=== PATIENT | female | born 1940 | race Caucasian/White ===

== ENCOUNTER 2016-11-18 18:53 | Emergency (ER) | payer MEDICARE ==
[2016-11-18] MEDS ORDERED: NORMAL SALINE 1,000 ML IV ONE (19:32)
--- NOTE | 2016-11-18 19:43 | ERNOTE ---
<Jack Salazar - Last Filed: 11/18/16 20:48> Medical Problem HPI - Narrative Date of Service: 11/18/16 - General Chief Complaint: General Assessment Time Seen by Provider: 11/18/16 19:18 Source: patient Exam Limitations: clinical condition - PT SEEMS DEMENTED DISORIENTED TO DAY AND PERSON BUT KNOWS SHE IS AT [facility]. SHE CAN NOT CONSISTENTLY GIVE HER AGE , PRESIDENT, MONTH OR YEAR. I DO NOT BELIEVE HER HISTORY IS RELIABLE. - Immun/Allergies/Home Medications Immunizations: IMMUNIZATION HX Immunizations Up to Date Yes History of Influenza Vaccine Yes Hx Pneumococcal Vaccination Yes Allergies/Adverse Reactions: Allergies codeine [Codeine] Allergy (Intermediate, Verified 07/15/16 18:42) latex Allergy (Intermediate, Verified 07/15/16 18:42) rash Penicillins Allergy (Intermediate, Verified 07/15/16 18:42) Nausea ezetimibe [From Vytorin 10-10] Allergy (Unknown, Verified 07/15/16 18:42) simvastatin [From Vytorin 10-10] Allergy (Unknown, Verified 07/15/16 18:42) Latex, Natural Rubber Allergy (Verified 07/15/16 18:42) Hives fentanyl Adverse Reaction (Severe, Verified 07/15/16 18:42) Vomiting oxycodone HCl [From OxyContin] Adverse Reaction (Intermediate, Verified 18:42) Vomiting hydrocodone [Hydrocodone] Adverse Reaction (Verified 07/15/16 18:42) unknown methadone [Methadone] Adverse Reaction (Verified 07/15/16 18:42) Other Milk Containing Products Adverse Reaction (Verified 07/15/16 18:42) Other morphine Adverse Reaction (Verified 07/15/16 18:42) Other oxycodone [Oxycodone] Adverse Reaction (Verified 07/15/16 18:42) unknown Home Medications: HOME MEDICATIONS Nitroglycerin [Nitrostat] 0.4 mg SL Q5MIN PRN #30 btl 08/20/15 [Last Taken 07/15 17:42 2 doses] Albuterol Sulfate [Albuterol Sulfate 2.5 MG/0.5ML] 1 vial IH QID 11/18/16 [Last Taken Unknown] Aspirin [Aspirin EC] 81 mg PO DAILY 11/18/16 [Last Taken Unknown] Carvedilol [Coreg] 12.5 mg PO BID 11/18/16 [Last Taken Unknown] Cholecalciferol (Vitamin D3) [Vitamin D] 2,000 unit PO DAILY 11/18/16 [Last Taken Unknown] Colchicine 0.6 mg PO DAILY 11/18/16 [Last Taken Unknown] Gabapentin [Neurontin] 600 mg PO HS 11/18/16 [Last Taken Unknown] Insulin NPH Hum/Reg Insulin Hm [Humulin 70-30] 15 unit SC BIDAC 11/18/16 [Last Taken Unknown] Melatonin 5 mg PO HS 11/18/16 [Last Taken Unknown] Multivit with Calcium,Iron,Min [Women's Daily Formula] 1 each PO DAILY 11/18/16 [Last Taken Unknown] buPROPion HCL [Wellbutrin XL] 150 mg PO DAILY 11/18/16 [Last Taken Unknown] - History of Present History Narrative: PT CLAIMS SHE IS HERE BECAUSE SHE HAS HAD BOWEL TROUBLE FOR A YEAR. SHE CLAIMS SHE HAS HAD BLOODY DIARRHEA EVERY 15 MINS FOR THE PAST YEAR BUT STATES SHE HAS NOT BEEN SEEN BY A DOCTOR BECAUSE, SHE "DOES NOT HAVE ONE" , YET SHE SAYS SHE HAS BEEN HERE TO THE ER A FEW WEEKS AGO FOR A SORE FOOT. Review of Systems - Review of Systems Constitutional: Present: See HPI, weakness Gastrointestinal/Abdominal: Present: diarrhea All Other Systems: All systems neg except as marked - THOUGH I DO NOT THINKD SHE IS A RELIABLE HISTORIAN AND HER DAUGHTER , JAZMYN WHOM SHE LIVES , IS NOT HERE WITH HER. - Patient's Past Medical History Patient History - Medical: Anemia, Anxiety, Arthritis, Diabetes Type 2 Insulin Dependent, Depression, GERD, Osteoarthritis, Osteoporosis Patient History - Cardiac/Respiratory: Coronary Heart Disease, Hypertension, Hyperlipidemia Patient History - Cancer: Other Patient History - Surgical Procedures: Back Surgery, Cataracts, Cholecystectomy , Cardiac stent, Hysterectomy, Other Patient History - Other: None - Family History Mother Family History - Medical: , Diabetes Type 1 Family History - Cardiac/Respiratory: Hypertension Father Family History - Medical: , Diabetes Type 2 Family History - Cardiac/Respiratory: Coronary Heart Disease Sister Family History - Medical: , Diabetes Type 2 Family History - Cardiac/Respiratory: Hypertension - Social History Living Situations: home Abuse History: No History of abuse Psych History: Hx of Anxiety, Hx of Depression Smoking Status: Current every day smoker Patient requests Smoking Cessation Consult: No Initiate information on Smoking Cessation: No Alcohol Use: none Drug Use: none - Immunizations Immunizations Up to Date: Yes Hx Pneumococcal Vaccination: Yes History of Influenza Vaccine: Yes Physical Exam - Physical Exam General Appearance: Present: alert, no apparent distress, other - PT IS DISORIENTED BUT ALERT AND COOP ELDERLY LADY WHO DOES APPEAR DRY. Eye Exam: Normal inspection: bilateral Ears, Nose, Throat: Present: normal except -, dry mucous membranes Neck: Present: normal inspection, nontender. Absent: carotid bruit Respiratory: Present: no respiratory distress, normal breath sounds, no accessory muscle use, chest nontender, lungs clear Cardiovascular/Chest: Present: regular rate, rhythm, no murmur, normal peripheral pulses Gastrointestinal/Abdominal: Present: normal bowel sounds, nontender, nondistended, soft, no organomegaly, other - SHE HAS A SOFT NON TENDER ABDOMEN THAT HAS MULTIPLE OLD SURGICAL SCARS ON HER ABD. Back Exam: Present: normal inspection, normal range of motion, no CVA tenderness , no vertebral tenderness Extremity Exam: Present: normal except - - SHE HAS PURPLISH BRUISING TO THE DISTAL TOES OF HER RIGHT FOOT WITH NO SWELLING OR GROSS DEFORMITY , normal range of motion, no edema Neurological Exam: Present: alert, no motor/sensory deficits, disoriented to person, disoriented to time Skin Exam: Present: normal color, warm/dry ED Progress - Vital Signs Vital Signs: Vital Signs 11/18/16 11/18/16 18:56 19:16 Temperature 37.5 C Pulse Rate 89 80 Respiratory 18 18 Rate Blood Pressure 146/59 146/59 O2 Sat by Pulse 96 97 Oximetry - Progress/Reassessment Chief Complaint: General Assessment - Transfer of Care Physician Sign Out: Jack Salazar Brief History: DEMENTED ACTING LADY CLAIMING CHRONIC DIARRHEA X 1 YEAR , EVERY 15 MINS OF EVERY DAY. Receiving Physician: Ruslan Duffy Pending Results: Labs Expected Disposition: Discharge Departure - Departure Clinical Impression: Hematochezia, Chronic diarrhea Disposition: Home self-care Condition: Fair Instructions: Gastrointestinal Bleeding, [id number], Diarrhea, Adult, Easy-to -Read Print Language: Haitian Additional Instructions: If the blood in the stool increases return to the ED. You will need to have an lower endoscopy done to have an idea of the where the blood is coming from. Referrals: Conrado Mcgill MD [Staff Physician] - <Ruslan Duffy - Last Filed: 11/19/16 05:48> Medical Problem HPI - Immun/Allergies/Home Medications Immunizations: IMMUNIZATION HX Immunizations Up to Date Yes History of Influenza Vaccine Yes Hx Pneumococcal Vaccination Yes ED Progress - Results and Orders Patient's Lab Results:: I have reviewed the patient's lab results. - Vital Signs Patient's Vital Signs:: I have reviewed the patient's vital signs. Vital Signs: Vital Signs 11/18/16 11/18/16 11/18/16 21:45 22:45 23:45 Temperature Pulse Rate 80 86 84 Respiratory 18 12 18 Rate Blood Pressure 146/55 154/65 218/83 O2 Sat by Pulse 97 97 100 Oximetry 11/19/16 11/19/16 11/19/16 00:05 00:40 00:52 Temperature Pulse Rate 86 96 95 Respiratory 18 18 Rate Blood Pressure 154/70 134/71 O2 Sat by Pulse 100 99 Oximetry 11/19/16 00:57 Temperature 37.5 C Pulse Rate 95 Respiratory 18 Rate Blood Pressure 134/71 O2 Sat by Pulse 99 Oximetry - Progress/Reassessment Progress:: Unchanged Progress Note-Subjective: 11/19/16 05:33 The rectal exam demonstrated heme positive no masses. 11/19/16 05:35 The care of the patient had been assumed from Dr. Davis. The patient has been having chronic diarrhea, with the new onset of hematochezia today. Denies any pain, new fatigue, or fevers. She has had more than a 70 pound weight loss over the last year. A CT scan of the abdomen/ pelvis did not show any acute pathology. The patient was instructed to contact Dr. Mcgill for follow up care since she will need to have a lower endoscopy done. It was advised that she call the office this morning. During he ED stay Silvia remained hemodynamically stable and could be managed as an out patient. There was no change in her ability to ambulate and was able to go to the bathroom with minimal assistance.
[2016-11-18 19:46] LABS: Hematocrit 30.4 % (37.0-47.0); Hemoglobin 10.6 gm/dL (12.5-16.0); Mean Corpuscular Hemoglobin 31.7 pg (27-31); Mean Corpuscular Hgb Conc 34.9 g/dl (32-36); Mean Platelet Volume 10.2 fl (6.0-9.5); Neutrophil # 6.6 K/mm3 (1.3-6.0); Neutrophil % 78.7 % (42-75.0); Platelet Count 112 K/mm3 (150-450); Red Blood Count 3.34 M/mm3 (4.2-5.4); Red Cell Distribution Width 13.4 % (11.5-14.0); White Blood Count 8.3 K/mm3 (4.0-10.5)
--- OUTSIDE RECORDS SUMMARY | 2016-11-18 19:49 | XMS REPORT | Continuity of Care Document ---
:1940 Author Organization [facility] ([facility]) Address [address] [place] [address] Phone [phone] Care Team Providers Name Role Phone Azul Cortez Primary Care Provider [phone] Source Comments This disclosure is being made pursuant to the Care Everywhere program, applicable federal and state laws, and may not contain all informaitonavailable regarding this patient.[facility] ([facility]) Active Allergies and Adverse Reactions Allergen Noted Date Severity Reactions Comments Codeine 04/01/2014 Nausea & Vomiting Ezetimibe-Simvastatin 04/01/2014 Nausea & Vomiting,Rash Latex 04/01/2014 Rash Methadone 05/13/2009 OTHER Out of head Morphine 05/13/2009 Nausea & Vomiting,Hallucinations Penicillins 05/13/2009 Nausea & Vomiting,Diarrhea Current Medications Prescription Sig. Disp. Refills Start Date End Date Status MULTIVITAMINS Take 1 Tab by mouth Active W-MINERALS/LUT daily. (CENTRUM SILVER PO) buPROPion Take 150 mg by mouth 03/05/2014 Active (WELLBUTRIN XL) 150 daily. mg extended release tablet 24 hour omega-3 fatty Take 1,000 mg by Active acids-vitamin E mouth daily. (FISH OIL) 1,000 mg capsule albuterol 90 Use 2 Puffs by Active mcg/Actuation inhalation every 6 inhaler hours as needed. nitroglycerin 0.[address] 0.4 mg under Active SL tablet the tongue every 5 minutes as needed. aspirin 81 mg Take 81 mg by mouth Active chewable tablet daily. omeprazole 20 mg Take 20 mg by mouth Active extended release daily. capsule SERTraline 50 mg Take 50 mg by mouth Active tablet daily. gabapentin 300 mg Take 300 mg by mouth Active capsule at bedtime. insulin nph-regular Inject 15 Units Active (HumuLIN 70/30) 100 subcutaneously 2 unit/mL injection times daily before vial meals. acetaminophen 500 mg Take 1,000 mg by Active tablet mouth every 6 hours as needed for Pain. carvedilol 12.5 mg Take 1 tablet (12.5 60 tablet 0 02/16/2016 Active tablet mg total) by mouth 2 times daily. colchicine 0.6 mg Take 1 tablet (0.6 60 tablet 0 02/16/2016 Active tablet mg total) by mouth daily. 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 Type 2 diabetes mellitus without complication 06/15/2007 Cirrhosis of liver without mention of alcohol 06/15/2007 Unspecified disorder of liver 06/15/2007 Social History Tobacco Use Types Packs/Day Years Used Date Heavy Tobacco Smoker Cigarettes Smokeless Tobacco: Never Used Alcohol Use Drinks/Week oz/Week Comments No Last Filed Vital Signs Vital Sign Reading Time Taken Blood Pressure 136/52 02/16/2016 8:05 AM CDT Pulse 78 02/16/2016 3:00 AM CDT Temperature 36.8 C (98.2 F) 02/16/2016 8:05 AM CDT Respiratory Rate 20 02/16/2016 8:05 AM CDT Height 1.549 m (5' 1") 02/12/2016 10:50 AM CDT Weight 64.5 kg (142 lb 3.2 oz) 02/16/2016 5:00 AM CDT Body Mass Index 26.88 02/16/2016 5:00 AM CDT Oxygen Saturation 96% 02/16/2016 8:05 AM CDT Plan of Care Health Maintenance Due Date Last Done Comments Hepatitis B Vaccine (1 of 3 - Primary Series) 1940 Tdap Vaccine 12/11/1950 Diabetic: Ldl 12/11/1957 DIABETIC: Microalbumin 12/11/1957 Td Vaccine 12/11/1957 Mammogram 1979 Colonoscopy 12/11/1989 Zoster Vaccine 1999 Osteoporosis Screening (DXA Bone Density) 12/11/2004 Pneumococcal Vaccine (1 of 2 - PCV13) 12/11/2004 DIABETIC: Foot Exam 01/19/2011 DIABETIC: Retinal Eye Exam 01/19/2011 Influenza Vaccine: Seasonal (#1) 03/08/2016 DIABETIC: Hemoglobin A1C 08/15/2016 02/13/2016 DIABETIC: Cholesterol 02/12/2017 02/13/2016 Diabetic: Hdl 02/12/2017 02/13/2016 DIABETIC: Triglycerides 02/12/2017 02/13/2016 Results from Last 3 Months Not on file
--- OUTSIDE RECORDS SUMMARY | 2016-11-18 19:49 | XMS REPORT | Continuity of Care Document ---
:1940 Author Organization [facility] [place] [address] Care Team Providers Name Role Phone Unavailable Primary Care Provider Unavailable Source Comments This disclosure is being made pursuant to the [email or web address] program and maynot contain all information available regarding this patient.[facility] Active Allergies and Adverse Reactions Not on File Current Medications Be aware that medications may not be up to date as of this document. Alwaysverify current medications with the patient. Not on file Active Problems Not on file Immunizations Name Dates Previously Given Next Due Influenza Split 08/08/2009 Pneumococcal Polysaccharide-23 08/08/2008 Social History Tobacco Use Types Packs/Day Years Used Date Current Every Day Smoker Plan of Care Health Maintenance Due Date Last Done Comments Tetanus/Pertussis (1 - Tdap) 12/11/1958 Well Adult Visit 12/11/1989 Zoster Vaccine 60+ 1999 Bone Density 12/11/2004 Pneumococcal Low/Medium Risk 65+ (2 of 2 - PCV13) 08/08/2009 08/08/2008 Influenza Immunization (#1) 2016 08/08/2009 Results from Last 3 Months Not on file
[2016-11-18 20:07] LABS: Albumin * 2.5 gm/dl (3.4-5.0); Anion Gap 12.5 mmol/L (6.8-13.8); BUN/Creatinine Ratio 20.2 (9.0-21.6); Bilirubin, Total 0.6 mg/dL (0.0-1.1); Ca. Corrected For Albumin 9.2 mg/dL (8.4-10.2); Calcium * 8.3 mg/dL (7.9-10.9); Carbon Dioxide 23.9 mmol/L (24-32.6); Potassium 3.4 mmol/L (3.4-4.6); TSH * 0.658 uIU/mL (0.358-3.74); Total Protein 5.6 gm/dL (6.2-8.2)
[2016-11-18 20:09] LABS: Prothrombin Time (Patient) 12.5 Seconds (9.4-11.4)
[2016-11-18 20:10] LABS: INR 1.2 INR (0.90-1.10)
[2016-11-18 20:56] LABS: Urine Bilirubin Negative (NEGATIVE); Urine Blood 25 /ul (NEGATIVE); Urine Ketone 5 mg/dL (NEGATIVE); Urine Nitrite Negative (NEGATIVE); Urine Protein >=300 mg/dL (NEGATIVE); Urine Specific Gravity 1.015 SP.GR. (1.005-1.010); Urine Urobilinogen Normal (NORMAL)
[2016-11-18 21:11] LABS: Urine Amorphous Sediment Moderate - 2+ (NONE-FEW); Urine Appearance Clear; Urine Bacteria 2+; Urine Color Yellow; Urine Hyaline Cast 0-5 /LPF; Urine RBC 0-5 /hpf (0-5); Urine WBC 0-5 /hpf (0-5)
[2016-11-19 02:16] VITALS: BP 134/71
== END 2016-11-19 00:57 | disposition home or self-care (01) ==
LOC: ER 18:53
DX: K92.1 Melena (principal); K52.9 Noninfective gastroenteritis and colitis, unspecified; F17.200 Nicotine dependence, unspecified, uncomplicated

== ENCOUNTER 2017-02-13 20:01 | Emergency (ER) | payer MEDICARE ==
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
[2017-02-13] MEDS ORDERED: KETOROLAC TROMETHAMINE 30 MG/ML VIAL IV ONE (20:46)
[2017-02-13] MEDS ORDERED: KETOROLAC TROMETHAMINE 30 MG/ML VIAL ONE (20:53)
[2017-02-13 21:35] VITALS: BP 149/64
== END 2017-02-13 21:40 | disposition short-term general hospital (02) ==
LOC: ER 20:01
DX: R07.89 Other chest pain (principal); M54.5 Low back pain; W19.XXXA Unspecified fall, initial encounter

== ENCOUNTER 2018-06-19 09:13 | Observation (INO) ==
--- NOTE | 2018-06-19 09:35 | ERNOTE ---
Medical Problem HPI - General Chief Complaint: Diabetes Related Problem Time Seen by Provider: 06/19/18 09:19 [facility] Exam Limitations: clinical condition, dementia - Immun/Allergies/Home Medications Immunizations: IMMUNIZATION HX Immunizations Up to Date Yes History of Influenza Vaccine Yes Hx Pneumococcal Vaccination No Allergies/Adverse Reactions: Allergies codeine [Codeine] Allergy (Intermediate, Verified 06/19/18 09:24) latex Allergy (Intermediate, Verified 06/19/18 09:24) rash Penicillins Allergy (Intermediate, Verified 06/19/18 09:24) Nausea ezetimibe [From Vytorin 10-10] Allergy (Unknown, Verified 06/19/18 09:24) simvastatin [From Vytorin 10-10] Allergy (Unknown, Verified 06/19/18 09:24) fentanyl Adverse Reaction (Severe, Verified 06/19/18 09:24) Vomiting milk Adverse Reaction (Unknown, Verified 06/19/18 09:24) hydrocodone [Hydrocodone] Adverse Reaction (Verified 06/19/18 09:24) unknown methadone [Methadone] Adverse Reaction (Verified 06/19/18 09:24) Other morphine Adverse Reaction (Verified 06/19/18 09:24) Other oxycodone [Oxycodone] Adverse Reaction (Verified 06/19/18 09:24) unknown Home Medications: HOME MEDICATIONS Citalopram Hydrobromide [Citalopram HBr] 5 mg PO QAM 01/09/18 [Last Taken 01/09/18 07:00] Gabapentin 100 mg PO TID 01/09/18 [Last Taken 01/09/18 12:00] Lisinopril 5 mg PO HS 01/09/18 [Last Taken 01/09/18 19:00] Atorvastatin Calcium [Lipitor] 20 mg PO DAILY 01/17/18 [Last Taken Unknown] Carbamide Peroxide [Debrox] 1 drop EACH EAR .Q7DAYS 01/17/18 [Last Taken 01/10/18 07:00] metFORMIN HCL [Metformin HCl ER] 1,000 mg PO BIDWM 01/17/18 [Last Taken Unknown] Furosemide 60 mg PO DAILY #30 tab 01/18/18 [Last Taken Unknown] Pantoprazole Sodium [Protonix] 40 mg PO 0700 #30 tablet. 01/18/18 [Last Taken Unknown] acetaminophen 325 mg tablet 650 mg PO Q6H tab 04/06/18 [Last Taken Unknown] Cholecalciferol (Vitamin D3) [Vitamin D3] 2,000 unit PO DAILY 06/19/18 [Last Taken Unknown] - History of Present History Narrative: PAtient is from the dementia unit at the [facility]. Today her glucose was elevated and she has been more confused and less active than usual. No further history is available. Review of Systems - Narrative Narrative: unable to obtain Medical History (Last Reviewed 06/19/18 @ 12:02 by Anne-Marie Haddad MD) Anemia of chronic disease (Chronic) Essential hypertension (Chronic) Onset Date: Unknown Osteoporosis (Chronic) Anxiety and depression (Chronic) CHF (congestive heart failure) (Chronic) Uncontrolled type 2 diabetes mellitus with hyperglycemia, with long-term current use of insulin (Chronic) Type II diabetes mellitus with renal manifestations, uncontrolled (Chronic) Hypertension (Chronic) Confusion (Chronic) GERD with esophagitis (Chronic) CKD (chronic kidney disease) stage 3, GFR 30-59 ml/min (Chronic) Dementia (Chronic) Depression (Chronic) Anxiety and depression Onset Date: ~1969 COPD (chronic obstructive pulmonary disease) Onset Date: ~2008 Dementia Onset Date: Unknown Diabetes mellitus Onset Date: Unknown with proteinuria, neuropathy Gastritis Onset Date: Unknown Hx of echocardiogram Onset Date: 03/03/15 moderate concentric left ventricular hypertrophy, EF-52%,, pulmonary hypertension, small pericardial effusion, right ventricular systolic pressure elevated at 45mmHG Hyperlipidemia Onset Date: 1979 Osteoarthritis Onset Date: 2006 chronic, laminectomy, disc protrusion[2009] Osteoporosis Onset Date: Unknown Tobacco abuse Onset Date: Unknown 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 ' Tinguely- tubular adenoma x2, hyperplastic x1. History of appendectomy Onset Date: 1961 History of esophagogastroduodenoscopy (EGD) Onset Date: ~2017 '07 '09 Peasley-mild esophagitis, inflamed glandular tissue w/changes suspicious for specialized columnar epithelium. 'Tinguely-mod chemical irritation. 01/17/1867-[id number] History of lumbar spinal fusion Onset Date: 12/11/08 Dr. Snell History of salpingo-oophorectomy Onset Date: 1971 after tubal Hx of cardiac catheterization Onset Date: 06/26/13 Dr Solomon - left heart cath with coronary angiography - severe one-vessel coronary artery disease/RCA Hx of cholecystectomy Onset Date: ~1961 Dr Cruz- open Hx of eye surgery Onset Date: ~200506/21/06-left 05/02/06-right Hx of laminectomy Onset Date: Unknown L4-5, L5-S1 Hx of vascular surgery Onset Date: 06/14/11 [facility] [employer] of right SFA S/P pericardiocentesis Onset Date: 02/13/16 [facility] S/P total abdominal hysterectomy Onset Date: 1972 with partial oophorectomy S/p bilateral carpal tunnel release Onset Date: 201112/14/07 Dr Aguirre-left. 05/1912 Mely-right s/p left hip cemented hemiarthroplasty Onset Date: 01/11/18 Dr. Boone Family History: Family History (Last Reviewed 06/19/18 @ 09:20 by iNck Duffy RN) Father Diabetes Heart disease Gangrene of foot Mother Diabetes Heart disease Hypertension Osteoporosis Sister Diabetes Hypertension Brother Diabetes Hypertension Social History: Preferred Language Uzbek Smoking Status Former smoker Abuse History No History of abuse Psych History Hx of Anxiety,Hx of Depression Alcohol Use none Drug Use none (Last Updated 06/06/18 @ 12:45 by Shanna Ahn DO) No Social History Section defined Physical Exam - Physical Exam General Appearance: Present: wd/wn, no apparent distress, obese, other - confused Eye Exam: Normal inspection: bilateral Respiratory: Present: no respiratory distress, normal breath sounds, lungs clear Cardiovascular/Chest: Present: no murmur, tachycardia Gastrointestinal/Abdominal: Present: normal bowel sounds, nontender, nondistended, soft Extremity Exam: Present: no edema Neurological Exam: Present: alert, disoriented to person, disoriented to time, disoriented to place, disoriented to situation, other - follows some commands, moved all extremities Skin Exam: Present: normal color, warm/dry, intertrigo - right groin, other - no skin breakdown ED Progress - Results and Orders Patient's Lab Results:: I have reviewed the patient's lab results. - Vital Signs Patient's Vital Signs:: I have reviewed the patient's vital signs. Vital Signs: Vital Signs 06/19/18 09:13 Temperature 37.5 C Pulse Rate 108 H Respiratory Rate 16 Blood Pressure 160/80 H O2 Sat by Pulse Oximetry 90 L - X-Ray X-Ray #1 X-Ray: chest - 1. Mildly increased vascular markings of the lungs. Interpretation: Reviewed by me X-Ray #2 X-Ray: abdomen - . Stool retention at the rectosigmoid region, suggestive of constipation/fecal impaction. No definite signs of bowel obstruction Interpretation: Reviewed by me - Progress/Reassessment Chief Complaint: Diabetes Related Problem Progress Note-Subjective: 06/19/18 11:02 patient restless and confused, possible in pain? possible infection is a concern as patient has slightly elevated WBC and no other obvious reason for elevated glucose no source of infection found at this point 06/19/18 11:56 discussed with kelsy Henriquez to admit for observation for hyperglycemia and possible infection she will decide on antibiotic use after seeing patient Departure Clinical Impression: Hyperglycemia - Departure Disposition: Still a patient Condition: Stable
[2018-06-19 09:57] LABS: Hematocrit 30.7 % (37.0-47.0); Hemoglobin 10.8 gm/dL (12.5-16.0); Mean Cell Volume 92.7 fl (78-100); Mean Corpuscular Hemoglobin 32.6 pg (27-31); Mean Corpuscular Hgb Conc 35.2 g/dl (32-36); Mean Platelet Volume 11.1 fl (8-12.5); Neutrophil # 9.8 K/mm3 (1.3-6.0); Neutrophil % 83.8 % (42-75.0); Platelet Count 143 K/mm3 (150-450); Red Blood Count 3.31 M/mm3 (4.2-5.4); Red Cell Distribution Width 11.7 % (11.5-14.0); White Blood Count 11.6 K/mm3 (4.0-10.5)
[2018-06-19 10:19] LABS: ALT 18 U/L (19-67); AST 14 U/L (0-48); Albumin * 3.6 gm/dl (3.4-5.0); Alkaline Phosphatase * 189 U/L (50-170); Anion Gap 17.8 mmol/L (6.8-13.8); Bilirubin, Total 0.9 mg/dL (0.0-1.1); Blood Urea Nitrogen 43 mg/dL (3-23); CRP 1.8 mg/dL (0.0-0.9); Ca. Corrected For Albumin 9.5 mg/dL (8.4-10.2); Calcium * 9.5 mg/dL (7.9-10.9); Carbon Dioxide 25.7 mmol/L (24-32.6); Chloride 96 mmol/L (97-106); Potassium 4.5 mmol/L (3.4-4.6); Sodium 135 mmol/L (132-142); Total Protein 7.6 gm/dL (6.2-8.2)
[2018-06-19 10:22] LABS: Glucose * 704 mg/dL (70-110)
[2018-06-19 10:26] LABS: Urine Bilirubin Negative (NEGATIVE); Urine Blood 25 /ul (NEGATIVE); Urine Ketone 5 mg/dL (NEGATIVE); Urine Nitrite Negative (NEGATIVE); Urine Protein 100 mg/dL (NEGATIVE); Urine Specific Gravity 1.015 SP.GR. (1.005-1.010); Urine Urobilinogen Normal (NORMAL)
[2018-06-19] MEDS ORDERED: NORMAL SALINE 1,000 ML IV ONE ×2 (10:28→12:17)
[2018-06-19 10:40] LABS: Urine Appearance Slightly Cloudy (CLEAR); Urine Color Yellow
[2018-06-19 10:42] LABS: Urine Amorphous Sediment Few - 1+ (NONE-FEW); Urine Bacteria 1+; Urine WBC None Seen /hpf (0-5)
[2018-06-19] MEDS ORDERED: INSULIN LISPRO 100 UNITS/ML VIAL SC ONE ×2 (11:18→16:55)
[2018-06-19] MEDS: BISACODYL 10 MG SUPP.RECT RC SCH (13:09)
[2018-06-19] MEDS ORDERED: INSULIN GLARGINE,HUM.REC.ANLOG 100 UNITS/ML VIAL SC ONE (13:17)
--- NOTE | 2018-06-19 13:34 | HP ---
Chief Complaint - Chief Complaint Date of Service: 06/19/18 Time of Service: 12:45 Chief Complaint: High blood sugar, not acting right History of Present Illness: The patient lives in the dementia unit at [facility] and she was brought to the ED due to elevated BG (BG reading greater than 500 at the [place]). There was also report of her not acting right and she seemed to be more lethargic and sleepy. The patient has severe dementia at baseline and is unable to provide any sort of history. The patient appears sleepy but is alert and easily aroused. No recent history of diarrhea or N/V. Medical History (Last Updated 06/19/18 @ 13:38 by Carmela Zuniga RN) Anemia of chronic disease (Chronic) Essential hypertension (Chronic) Onset Date: Unknown Osteoporosis (Chronic) Anxiety and depression (Chronic) CHF (congestive heart failure) (Chronic) Uncontrolled type 2 diabetes mellitus with hyperglycemia, with long-term current use of insulin (Chronic) Type II diabetes mellitus with renal manifestations, uncontrolled (Chronic) Hypertension (Chronic) Confusion (Chronic) GERD with esophagitis (Chronic) CKD (chronic kidney disease) stage 3, GFR 30-59 ml/min (Chronic) Dementia (Chronic) Depression (Chronic) Anxiety and depression Onset Date: ~1969 COPD (chronic obstructive pulmonary disease) Onset Date: ~2008 Dementia Onset Date: Unknown Diabetes mellitus Onset Date: Unknown with proteinuria, neuropathy Gastritis Onset Date: Unknown Hx of echocardiogram Onset Date: 03/03/15 moderate concentric left ventricular hypertrophy, EF-52%,, pulmonary hypertension, small pericardial effusion, right ventricular systolic pressure elevated at 45mmHG Hyperlipidemia Onset Date: 1979 Osteoarthritis Onset Date: 2006 chronic, laminectomy, disc protrusion[2009] Osteoporosis Onset Date: Unknown Tobacco abuse Onset Date: Unknown 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 Tinguely- tubular adenoma x2, hyperplastic x1. History of appendectomy Onset Date: 1961 History of esophagogastroduodenoscopy (EGD) Onset Date: ~2017 ' Peasley-mild esophagitis, inflamed glandular tissue w/changes suspicious for specialized columnar epithelium. 'Tinguely-mod chemical irritation. 01/17/1879-[id number] History of lumbar spinal fusion Onset Date: 12/11/08 Dr. Snell History of salpingo-oophorectomy Onset Date: 1971 after tubal Hx of cardiac catheterization Onset Date: 06/26/13 Dr Solomon - left heart cath with coronary angiography - severe one-vessel coronary artery disease/RCA Hx of cholecystectomy Onset Date: ~1961 Dr Cruz- open Hx of eye surgery Onset Date: ~200506/21/06-left 05/02/06-right Hx of laminectomy Onset Date: Unknown L4-5, L5-S1 Hx of vascular surgery Onset Date: 06/14/11 [facility] [employer] of right SFA S/P pericardiocentesis Onset Date: 02/13/16 [facility] S/P total abdominal hysterectomy Onset Date: 1972 with partial oophorectomy S/p bilateral carpal tunnel release Onset Date: 201112/14/07 Dr Aguirre-left. 05/1912 Mely-right s/p left hip cemented hemiarthroplasty Onset Date: 01/11/18 Dr. Boone Family History: Family History (Last Reviewed 06/19/18 @ 09:20 by Nick Duffy RN) Father Diabetes Heart disease Gangrene of foot Mother Diabetes Heart disease Hypertension Osteoporosis Sister Diabetes Hypertension Brother Diabetes Hypertension Social History: Patient Lives/Resources [facility] Utilized Preferred Language Spanish Smoking Status Former smoker Have you smoked in the past 12 No months Abuse History No History of abuse Psych History Hx of Anxiety,Hx of Depression Alcohol Use none Drug Use none (Last Updated 06/06/18 @ 12:45 by Shanna Ahn DO) No Social History Section defined Review Of Systems (GEN) - Review of Systems Additional Comments: Unable to obtain secondary to patient's baseline dementia Immunizations: IMMUNIZATION HX Immunizations Up to Date Yes History of Influenza Vaccine Yes Hx Pneumococcal Vaccination No Allergies/Adverse Reactions: Allergies Allergy/AdvReac Type Severity Reaction Status Date / Time codeine [Codeine] Allergy Intermediate Verified 06/19/18 13:37 latex Allergy Intermediate rash Verified 06/19/18 13:37 Penicillins Allergy Intermediate Nausea Verified 06/19/18 13:37 ezetimibe Allergy Unknown Verified 06/19/18 13:37 [From Vytorin 10-10] simvastatin Allergy Unknown Verified 06/19/18 13:37 [From Vytorin 10-10] fentanyl AdvReac Severe Vomiting Verified 06/19/18 13:37 milk AdvReac Unknown Verified 06/19/18 13:37 hydrocodone [Hydrocodone] AdvReac Verified 06/19/18 13:37 methadone [Methadone] AdvReac Other Verified 06/19/18 13:37 morphine AdvReac Other Verified 06/19/18 13:37 oxycodone [Oxycodone] AdvReac Verified 06/19/18 13:37 Home Medications: HOME MEDICATIONS Citalopram Hydrobromide [Citalopram HBr] 5 mg PO QAM 01/09/18 [Last Taken 01/09/18 07:00] Gabapentin 100 mg PO TID 01/09/18 [Last Taken 01/09/18 12:00] Lisinopril 5 mg PO HS 01/09/18 [Last Taken 01/09/18 19:00] Atorvastatin Calcium [Lipitor] 20 mg PO DAILY 01/17/18 [Last Taken Unknown] Carbamide Peroxide [Debrox] 1 drop EACH EAR .Q7DAYS 01/17/18 [Last Taken 01/10/18 07:00] metFORMIN HCL [Metformin HCl ER] 1,000 mg PO BIDWM 01/17/18 [Last Taken Unknown] Furosemide 60 mg PO DAILY #30 tab 01/18/18 [Last Taken Unknown] Pantoprazole Sodium [Protonix] 40 mg PO 0700 #30 tablet. 01/18/18 [Last Taken Unknown] acetaminophen 325 mg tablet 650 mg PO Q6H tab 04/06/18 [Last Taken Unknown] Cholecalciferol (Vitamin D3) [Vitamin D3] 2,000 unit PO DAILY 06/19/18 [Last Taken Unknown] Exam - Exam Vital Signs: Vital Signs - Last Taken Temp 36.6 C 06/19/18 12:42 Pulse 112 H 06/19/18 12:42 Resp 20 06/19/18 12:42 BP 188/92 H 06/19/18 12:42 Pulse Ox 96 06/19/18 12:42 Constitutional: Present: Alert, Elderly. Absent: Oriented x3 ENT Exam: Present: dry mucous membranes Neck: Present: stiff neck Back Exam: Present: no CVA tenderness, other - Scar over lumbar spine area secondary to prior spinal surgery Respiratory: Present: other - Coarse breath sounds bilaterally without any focal crackles, rhonchi, rales or wheezes appreciated Cardiovascular/Chest: Present: tachycardia Abdomen: Present: soft, other - Difficult to exam thoroughly secondary to the patient's dementia. At times, it appears she grimaces in pain when deeply palpating her abdomen but other times she appears fine. She has multiple scars on her abdomen due to prior surgeries, hypoactive Extremity: Present: normal inspection, no pedal edema Skin Exam: Present: warm/dry, other - Contusion with ecchymosis noted over left scalp a few inches behind her left ear. TTP over this area. No open areas/lacerations noted. Neurologic: Present: other - Patient has neck stiffness when I try and bend her neck and it is difficult to determine if she is just resisting me or if it is true stiffness. When I lift her leg, she lifts her head straight off the bed and yells that it hurts but is unable to tell me where it hurts. Appearance: Present: impaired insight, impaired recent memory, impaired remote memory Thoughts: Present: other - Abnormal secondary to baseline dementia Diagnostic Studies: Abnormal Lab Results 06/19/18 06/19/18 06/19/18 Range/Units 09:45 09:45 09:45 WBC 11.6 H (4.0-10.5) K/mm3 RBC 3.31 L (4.2-5.4) M/mm3 Hgb 10.8 L (12.5-16.0) gm/dL Hct 30.7 L (37.0-47.0) % MCH 32.6 H (27-31) pg Plt Count 143 L (150-450) K/mm3 Immature Gran % (Auto) 0.60 H (0.001-0.429) % Immature Gran # (Auto) 0.07 H (0.000-0.0310) K/mm3 Neutrophils % 83.8 H (42-75.0) % Lymphocytes % 9.6 L (20-51) % Neutrophils # 9.8 H (1.3-6.0) K/mm3 Lymphocytes # 1.12 L (1.5-3.5) k/mm3 Plasma Sodium 145 H (130-142) mmol/L Chloride 96 L (97-106) mmol/L Anion Gap 17.8 H (6.8-13.8) mmol/L BUN 43 H (3-23) mg/dL Creatinine 1.79 H (0.4-1.4) mg/dL Est GFR (Non-Af Amer) 29 L (60-130) mL/min BUN/Creatinine Ratio 24.0 H (9.0-21.6) Random Glucose 704 H* (70-110) mg/dL Lactic Acid, Venous 2.4 H* (0.4-2.0) mmol/L ALT 18 L (19-67) U/L Alkaline Phosphatase 189 H (50-170) U/L C-Reactive Prot, Quant 1.8 H (0.0-0.9) mg/dL Urine Protein (NEGATIVE) mg/dL Urine Glucose (UA) (NEGATIVE) mg/dL Urine Blood (NEGATIVE) /ul Urine RBC (0-5) /hpf Urine Bacteria (NONE) 06/19/18 06/19/18 Range/Units 10:16 12:15 WBC (4.0-10.5) K/mm3 RBC (4.2-5.4) M/mm3 Hgb (12.5-16.0) gm/dL Hct (37.0-47.0) % MCH (27-31) pg Plt Count (150-450) K/mm3 Immature Gran % (Auto) (0.001-0.429) % Immature Gran # (Auto) (0.000-0.0310) K/mm3 Neutrophils % (42-75.0) % Lymphocytes % (20-51) % Neutrophils # (1.3-6.0) K/mm3 Lymphocytes # (1.5-3.5) k/mm3 Plasma Sodium (130-142) mmol/L Chloride (97-106) mmol/L Anion Gap (6.8-13.8) mmol/L BUN (3-23) mg/dL Creatinine (0.4-1.4) mg/dL Est GFR (Non-Af Amer) (60-130) mL/min BUN/Creatinine Ratio (9.0-21.6) Random Glucose (70-110) mg/dL Lactic Acid, Venous 3.6 H* (0.4-2.0) mmol/L ALT (19-67) U/L Alkaline Phosphatase (50-170) U/L C-Reactive Prot, Quant (0.0-0.9) mg/dL Urine Protein 100 H (NEGATIVE) mg/dL Urine Glucose (UA) >=1000 H (NEGATIVE) mg/dL Urine Blood 25 H (NEGATIVE) /ul Urine RBC 5-10 H (0-5) /hpf Urine Bacteria 1+ H (NONE) Laboratory Results WBC 11.6 K/mm3 (4.0-10.5) H 06/19/18 09:45 RBC 3.31 M/mm3 (4.2-5.4) L 06/19/18 09:45 Hgb 10.8 gm/dL (12.5-16.0) L 06/19/18 09:45 Hct 30.7 % (37.0-47.0) L 06/19/18 09:45 MCV 92.7 fl (78-100) 06/19/18 09:45 MCH 32.6 pg (27-31) H 06/19/18 09:45 MCHC 35.2 g/dl (32-36) 06/19/18 09:45 RDW 11.7 % (11.5-14.0) 06/19/18 09:45 Plt Count 143 K/mm3 (150-450) L 06/19/18 09:45 MPV 11.1 fl (8-12.5) 06/19/18 09:45 Immature Gran % (Auto) 0.60 % (0.001-0.429) H 06/19/18 09:45 Immature Gran # (Auto) 0.07 K/mm3 (0.000-0.0310) H 06/19/18 09:45 Neutrophils % 83.8 % (42-75.0) H 06/19/18 09:45 Lymphocytes % 9.6 % (20-51) L 06/19/18 09:45 Monocytes % 5.7 % (0.0-9) 06/19/18 09:45 Eosinophils % 0.1 % (0.0-3.0) 06/19/18 09:45 Basophils % 0.2 % (0.0-1.0) 06/19/18 09:45 Nucleated RBC % 0.0 k/mm3 (0-1) 06/19/18 09:45 Neutrophils # 9.8 K/mm3 (1.3-6.0) H 06/19/18 09:45 Lymphocytes # 1.12 k/mm3 (1.5-3.5) L 06/19/18 09:45 Monocytes # 0.7 k/mm3 (0.0-1.0) 11 09:45 Eosinophils # 0.0 k/mm3 (0.0-0.7) 06/19/18 09:45 Absolute Basophils 0.0 k/mm3 (0.0-0.1) 06/19/18 09:45 VBG pH 7.380 (7.32-7.43) 06/19/18 09:45 Sodium 135 mmol/L (132-142) 06/19/18 09:45 Plasma Sodium 145 mmol/L (130-142) H 06/19/18 09:45 Potassium 4.5 mmol/L (3.4-4.6) 06/19/18 09:45 Chloride 96 mmol/L (97-106) L 06/19/18 09:45 Carbon Dioxide 25.7 mmol/L (24-32.6) 06/19/18 09:45 Anion Gap 17.8 mmol/L (6.8-13.8) H 06/19/18 09:45 BUN 43 mg/dL (3-23) H 06/19/18 09:45 Creatinine 1.79 mg/dL (0.4-1.4) H 06/19/18 09:45 Est GFR (Non-Af Amer) 29 mL/min (60-130) L 06/19/18 09:45 BUN/Creatinine Ratio 24.0 (9.0-21.6) H 06/19/18 09:45 Random Glucose 704 mg/dL (70-110) H* 06/19/18 09:45 Lactic Acid, Venous 3.6 mmol/L (0.4-2.0) H* 06/19/18 12:15 Calcium 9.5 mg/dL (7.9-10.9) 11 09:45 Calcium Adj for Albumin 9.5 mg/dL (8.4-10.2) 06/19/18 09:45 Total Bilirubin 0.9 mg/dL (0.0-1.1) 06/19/18 09:45 AST 14 U/L (0-48) 06/19/18 09:45 ALT 18 U/L (19-67) L 06/19/18 09:45 Alkaline Phosphatase 189 U/L (50-170) H 06/19/18 09:45 C-Reactive Prot, Quant 1.8 mg/dL (0.0-0.9) H 06/19/18 09:45 Total Protein 7.6 gm/dL (6.2-8.2) 06/19/18 09:45 Albumin 3.6 gm/dl (3.4-5.0) 06/19/18 09:45 Procalcitonin 0.09 ng/mL (0.05-0.50) 06/19/18 09:45 Urine Color Yellow 06/19/18 10:16 Urine Appearance Slightly cloudy (CLEAR) 06/19/18 10:16 Urine pH 7.0 pH (5.0-7.0) 06/19/18 10:16 Ur Specific Lander 1.015 SP.GR. (1.005-1.010) 06/19/18 10:16 Urine Protein 100 mg/dL (NEGATIVE) H 06/19/18 10:16 Urine Glucose (UA) >=1000 mg/dL (NEGATIVE) H 06/19/18 10:16 Urine Ketones 5 mg/dL (NEGATIVE) 06/19/18 10:16 Urine Blood 25 /ul (NEGATIVE) H 06/19/18 10:16 Urine Nitrate Negative (NEGATIVE) 06/19/18 10:16 Urine Bilirubin Negative mg/dl (NEGATIVE) 06/19/18 10:16 Prot Sulfosalicylic Acd QNS 06/19/18 10:16 Urine Urobilinogen Normal EU/dl (NORMAL) 06/19/18 10:16 Ur Leukocyte Esterase Negative /ul (NEGATIVE) 06/19/18 10:16 Urine RBC 5-10 /hpf (0-5) H 06/19/18 10:16 Urine WBC None seen /hpf (0-5) 06/19/18 10:16 Ur Epithelial Cells None seen /hpf (0-5) 06/19/18 10:16 Amorphous Sediment Few - 1+ (NONE-FEW) 06/19/18 10:16 Urine Bacteria 1+ (NONE) H 06/19/18 10:16 Urine Culture Comments No culture indicated 06/19/18 10:16 Serum Ketones Negative (NEGATIVE) 06/19/18 09:45 Assessment/Plan - Narrative Narrative: This is a difficult situation as the patient is unable to provide me with any reliable history. Given her lab results and acutely uncontrolled severe hyperglycemia, I am concerned about a potential infectious process. However, we will hold off on starting any antibiotics at this time until we have a source identified. Patient will need a lumbar puncture. However, we will get a head CT first especially since I noted some bruising to her left scalp area. We will also get a lumbar x-ray prior to her LP as she has a large scar over her lumbar spine and has obviously had some sort of spinal surgery. Consent for the LP was obtained over the phone from the patient's daughter, Rosalba, who is her POA. The patient also appears dry on exam so we will hydrate her with IVFs and will likely repeat a CXR in the AM to see if there is any evidence of pneumonia after the patient is hydrated appropriately. Blood cultures X 2 ordered. Influenza screening ordered. Procalcitonin ordered. Monitor BG and treat as necessary. Orders for both long acting and short acting insulin in place. - Assessment/Plan (1) Leukocytosis Problem: Acute (2) Hyperglycemia Problem: Acute (3) Scalp contusion Problem: Acute (4) Recurrent falls Problem: Chronic (5) Altered mental status Problem: Acute Qualifiers:
[2018-06-19] MEDS ORDERED: ACETAMINOPHEN 325 MG TABLET PO PRN (13:47)
[2018-06-19] MEDS: INSULIN LISPRO 100 UNITS/ML VIAL SC SCH (16:58)
[2018-06-19] MEDS ORDERED: INSULIN LISPRO 100 UNITS/ML VIAL SC SCH (17:00)
[2018-06-19] MEDS ORDERED: INSULIN DETEMIR 100 UNITS/ML VIAL SC SCH (21:00)
[2018-06-19] MEDS ORDERED: ROSUVASTATIN CALCIUM 10 MG TABLET PO SCH (21:00)
[2018-06-19] MEDS ORDERED: LISINOPRIL 5 MG TABLET PO SCH (21:00)
[2018-06-19] MEDS: INSULIN GLARGINE,HUM.REC.ANLOG 100 UNITS/ML VIAL SC SCH (21:30)
[2018-06-19] MEDS: NORMAL SALINE 1,000 ML IV PRN (21:43)
[2018-06-20] MEDS: NORMAL SALINE 1,000 ML IV PRN (05:26)
[2018-06-20] MEDS ORDERED: PANTOPRAZOLE SODIUM 40 MG TABLET.EC PO SCH (07:00)
[2018-06-20] MEDS: INSULIN LISPRO 100 UNITS/ML VIAL SC SCH (07:35)
[2018-06-20 08:45] LABS: Hematocrit 31.2 % (37.0-47.0); Hemoglobin 10.6 gm/dL (12.5-16.0); Mean Cell Volume 94.5 fl (78-100); Mean Corpuscular Hemoglobin 32.1 pg (27-31); Mean Platelet Volume 10.4 fl (8-12.5); Neutrophil # 11.4 K/mm3 (1.3-6.0); Neutrophil % 82.4 % (42-75.0); Platelet Count 131 K/mm3 (150-450); Red Cell Distribution Width 11.9 % (11.5-14.0); White Blood Count 13.8 K/mm3 (4.0-10.5)
[2018-06-20] MEDS ORDERED: INSULIN LISPRO 100 UNITS/ML VIAL SC ONE (08:49)
[2018-06-20 08:58] LABS: BUN/Creatinine Ratio 24.6 (9.0-21.6); Calcium * 8.9 mg/dL (7.9-10.9); Carbon Dioxide 24.5 mmol/L (24-32.6); Estimated Creat Clear 29.4; Potassium 3.5 mmol/L (3.4-4.6)
[2018-06-20] MEDS ORDERED: CITALOPRAM HYDROBROMIDE 10 MG TABLET PO SCH (09:00)
[2018-06-20] MEDS: BISACODYL 10 MG SUPP.RECT RC SCH (09:39)
[2018-06-20] MEDS: INSULIN GLARGINE,HUM.REC.ANLOG 100 UNITS/ML VIAL SC SCH (09:39)
--- NOTE | 2018-06-20 10:06 | DS ---
(1) Hyperglycemia due to type 2 diabetes mellitus Problem: Acute (2) Hyperglycemia Problem: Acute (3) Recurrent falls Problem: Chronic (4) Altered mental status Problem: Resolved Qualifiers: Description of Stay: ADMISSION DATE: 06/19/2018 DISCHARGE DATE: 06/20/2018 ADMISSION HPI: The patient lives in the dementia unit at [facility] and she was brought to the ED due to elevated BG (BG reading greater than 500 at the ID). There was also report of her not acting right and she seemed to be more lethargic and sleepy. The patient has severe dementia at baseline and is unable to provide any sort of history. The patient appears sleepy but is alert and easily aroused. No recent history of diarrhea or N/V. HOSPITAL COURSE: The patient was admitted to the hospital for hyperglycemia with original concern that the hyperglycemia was secondary to an infection. However, I am not conv inced of an infection and without any other treatment than IVFs and insulin, the following morning the patient was a completely different person and was very alert and answering all questions and was back to her baseline so I believe her initial presentation was due to severe hyperglycemia. The patient was discharged back to [facility] where she is a long-term resident in their dementia unit. We have started her on insulin and will continue to monitor her BG closely and make adjustments in her medications/insulin as necessary. FOLLOW-UP APPOINTMENTS: -Dr. Ahn will follow-up with the patient during longterm rounds within the next 2 weeks -Check CBC and BMP next Tuesday06/28/2018 -Monitor BG AC, HS and PRN NEW OR CHANGED MEDICATIONS: -Lantus 10 Units subcutaneously Q12H -Correctional Insulin TID with meals -Lasix 40mg PO daily DISCONTINUED MEDICATIONS: -None RADIOLOGY REPORTS: Single view CXR on 06/19/2018: FINDINGS: Hypoinflated lungs. No definite consolidation. Mildly increased vascular markings suggested. No pneumothorax or pleural fluid collections apparent. Cardiac and mediastinal silhouettes are normal for technique. Trachea is in normal position given patient positioning. Osseous structures are grossly intact. IMPRESSION: 1. Mildly increased vascular markings of the lungs. 2. No focal acute cardiopulmonary finding. Flat with upright abdominal x-ray on 06/19/2018: FINDINGS: No subdiaphragmatic free air. No abnormal dilation of large or small bowel. Large amount of stool retention noted within the rectosigmoid region. Pelvic calcifications are most likely phleboliths. Vascular calcifications noted. Multiple old right-sided rib fractures, grossly stable. Surgical changes of L4- L5 posterior lumbar fusion noted. Partially visualized surgical changes of left hip hemiarthroplasty. IMPRESSION: 1. Stool retention at the rectosigmoid region, suggestive of constipation/fecal impaction. No definite signs of bowel obstruction. 2. Additional comments are as above. Head CT without contrast on 06/19/2018: FINDINGS: Age-related cortical atrophy and periventricular white matter chronic ischemic changes are present. Intracranial atherosclerotic calcifications noted. No acute intracranial hemorrhage. No midline shift or herniation. [place]it and white matter differentiation is grossly intact. Stable appearance of small subcentimeter hypodensities of the left thalamus, and right basal ganglia, suggestive of small old lacunar infarcts. No obvious soft tissue swelling or scalp hematoma noted. Skull grossly intact, without signs of depressed skull fracture. Visualized portions of the paranasal sinuses are clear. Mastoid air cells are grossly clear. IMPRESSION: 1. No acute intracranial hemorrhage or mass effect. 2. Additional comments as above. Lumbar Spine x-ray on 06/19/2018: FINDINGS: Decreased mineralization of bone suggestive of underlying osteopenia or osteoporosis. Five nonrib-bearing lumbar vertebral bodies are noted. Pedicles are grossly intact. L4-L5 pedicles are obscured by pedicle screws. Patient status post posterior lumbar fusion at L5-S1. Hardware appears to be grossly intact and stable in position without evidence for hardware migration. Interpediculate distances are normal. Compression deformity of T11 vertebral body, grossly stable. Central wedging of the L2 vertebral body which appears to be potentially new compared to the prior study from 2015. Normal alignment is seen. Endplate degenerative changes noted throughout. Disc disease at L2-L3, L3-L4 levels, stable. Vascular calcifications noted throughout the abdominal aorta and the iliac arteries. Old right-sided rib fractures, grossly stable. IMPRESSION: 1. Potential new central wedging of the L2 vertebral body noted. Consider possible insufficiency fracture, if the patient has acute back pain. 2. Stable chronic compression fracture/deformity of T11 vertebral body. 3. Posterior lumbar fusion at L4-L5. 4. Additional comments are as above. Single View CXR on 06/20/2018: Findings: The lungs demonstrate no focal consolidation or acute abnormality. Reidentified diffuse interstitial prominence. This could be due to edema, chronic parenchymal scarring or diffuse pneumonitis, clinical correlation. There is no pleural effusion or pneumothorax. Cardiac silhouette and pulmonary vasculature are normal. The osseous structures are within normal limits for age. IMPRESSION: 1. Diffuse interstitial prominence as above Procedures Performed: none Results and Findings: Lab Pending Results 06/19/18 09:45: WBC 11.6 H, RBC 3.31 L, Hgb 10.8 L, Hct 30.7 L, MCV 92.7, MCH 32.6 H, MCHC 35.2, RDW 11.7, Plt Count 143 L, MPV 11.1, Immature Gran % (Auto) 0.60 H, Immature Gran # (Auto) 0.07 H, Neutrophils % 83.8 H, Lymphocytes % 9.6 L, Monocytes % 5.7, Eosinophils % 0.1, Basophils % 0.2, Nucleated RBC % 0.0, Neutrophils # 9.8 H, Lymphocytes # 1.12 L, Monocytes # 0.7, Eosinophils # 0.0, Absolute Basophils 0.0 06/19/18 09:45: Sodium 135, Plasma Sodium 145 H, Potassium 4.5, Chloride 96 L, Carbon Dioxide 25.7, Anion Gap 17.8 H, BUN 43 H, Creatinine 1.79 H, Est GFR (Non-Af Amer) 29 L, BUN/Creatinine Ratio 24.0 H, Random Glucose 704 H*, Calcium 9.5, Calcium Adj for Albumin 9.5, Total Bilirubin 0.9, AST 14, ALT 18 L, Alkaline Phosphatase 189 H, C-Reactive Prot, Quant 1.8 H, Total Protein 7.6, Albumin 3.6, Serum Ketones Negative 06/19/18 09:45: VBG pH 7.380 06/19/18 09:45: Lactic Acid, Venous 2.4 H* 06/19/18 09:45: Procalcitonin 0.09 06/19/18 10:16: Urine Color Yellow, Urine Appearance Slightly cloudy, Urine pH 7.0, Ur Specific [place] 1.015, Urine Protein 100 H, Urine Glucose (UA) >=1000 H, Urine Ketones 5, Urine Blood 25 H, Urine Nitrate Negative, Urine Bilirubin Negative, Prot Sulfosalicylic Acd QNS, Urine Urobilinogen Normal, Ur Leukocyte Esterase Negative, Urine RBC 5-10 H, Urine WBC None seen, Ur Epithelial Cells None seen, Amorphous Sediment Few - 1+, Urine Bacteria 1+ H, Urine Culture Comments No culture indicated 06/19/18 12:15: Lactic Acid, Venous 3.6 H* 06/19/18 14:15: Influenza Type A Ag Negative, Influenza Type B Ag Negative 06/19/18 16:46: TSH (Reflex) 0.405 06/19/18 16:46: Lactic Acid, Venous 2.4 H* 06/20/18 08:27: WBC 13.8 H, RBC 3.30 L, Hgb 10.6 L, Hct 31.2 L, MCV 94.5, MCH 32.1 H, MCHC 34.0, RDW 11.9, Plt Count 131 L, MPV 10.4, Immature Gran % (Auto) 0.60 H, Immature Gran # (Auto) 0.08 H, Neutrophils % 82.4 H, Lymphocytes % 9.6 L, Monocytes % 7.2, Eosinophils % 0.1, Basophils % 0.1, Nucleated RBC % 0.0, Neutrophils # 11.4 H, Lymphocytes # 1.32 L, Monocytes # 1.0, Eosinophils # 0.0, Absolute Basophils 0.0 06/20/18 08:40: Sodium 145 H, Plasma Sodium 150 H, Potassium 3.5 D, Chloride 110 H, Carbon Dioxide 24.5, Anion Gap 14.0 H, BUN 42 H, Creatinine 1.71 H, Est GFR (Non-Af Amer) 31 L, BUN/Creatinine Ratio 24.6 H, Random Glucose 387 H D, Calcium 8.9 Discharge Location: [facility] Disposition: Intermediate Care Facility ICF Condition: Stable Level of Care: ICF Discharge Activity: Activity as tolerated Discharge Diet: Resume usual diet Referrals: Shanna Ahn DO [Primary Care Provider] - Problem Oriented Discharge Instructions to Patient/Family: Hyperglycemia, [id number] Additional Patient Instructions (free text): -Dr. Ahn will follow-up with the patient during longterm rounds within the next 2 weeks -Check CBC and BMP next Tuesday -Monitor BG AC, HS and PRN Prescriptions (Any new or edited meds): Furosemide 40 mg PO DAILY #30 tab Insulin Glargine,Hum.rec.anlog [Lantus] 10 units SC Q12H #1 vial Insulin Lispro [Humalog] See Protocol SC ACINS #1 vial Complete Home Medications List: Complete Home Medication List: Citalopram Hydrobromide [Citalopram HBr] 5 mg PO QAM 01/09/18 Gabapentin 100 mg PO TID 01/09/18 Lisinopril 5 mg PO HS 01/09/18 Atorvastatin Calcium [Lipitor] 20 mg PO DAILY 01/17/18 Carbamide Peroxide [Debrox] 1 drop EACH EAR .Q7DAYS 01/17/18 metFORMIN HCL [Metformin HCl ER] 1,000 mg PO BIDWM 01/17/18 Pantoprazole Sodium [Protonix] 40 mg PO 0700 #30 tablet.dr 01/18/18 acetaminophen 325 mg tablet 650 mg PO Q6H tab 04/06/18 Cholecalciferol (Vitamin D3) [Vitamin D3] 2,000 unit PO DAILY 06/19/18 Bisacodyl [Dulcolax Suppository] 10 mg RC DAILY supp.rect 06/20/18 Furosemide 40 mg PO DAILY #30 tab 06/20/18 Insulin Glargine,Hum.rec.anlog [Lantus] 10 units SC Q12H #1 vial 06/20/18 Insulin Lispro [Humalog] See Protocol SC ACINS #1 vial 06/20/18 Amb Orders for Discharge: Basic Metabolic Panel Time Frame: 06/28/18, Location: Laboratory CBC Time Frame: 06/28/18, Location: Laboratory
[2018-06-20 11:43] VITALS: BP 141/81
== END 2018-06-20 11:15 ==
LOC: MS 09:13 → ER 09:13 → MS 12:53
PROVIDERS: ADMIT Internal Medicine; ATTEND Internal Medicine
DX: N18.3 Chronic kidney disease, stage 3 (moderate); E11.22 Type 2 diabetes mellitus with diabetic chronic kidney disease; I12.9 Hypertensive chronic kidney disease with stage 1 through stage 4 chronic kidney disease, or unspecified chronic kidney disease; Z91.81 History of falling; I10 Essential (primary) hypertension; E11.65 Type 2 diabetes mellitus with hyperglycemia; F03.90 Unspecified dementia, unspecified severity, without behavioral disturbance, psychotic disturbance, mood disturbance, and anxiety
CPT/HCPCS: 36415; 70450; 71010; 71045; 72100; 74019; 74020; 80048; 80053; 81001; 82009; 82800; 83605; 84145; 84443; 85025; 86140; 87040; 87081; 87400; 87449; 96360; 96361; 96372; 99284; G0378

== ENCOUNTER 2019-07-20 11:45 | Observation (INO) ==
[2019-07-20] MEDS ORDERED: ACETAMINOPHEN 500 MG TABLET PO PRN (13:06)
[2019-07-20] MEDS ORDERED: FUROSEMIDE 10 MG/ML VIAL IV PRN (13:09)
[2019-07-20] MEDS ORDERED: BISACODYL 10 MG SUPP.RECT RC PRN (13:19)
[2019-07-20] MEDS ORDERED: NYSTATIN 15 APPL BTL TP PRN (13:19)
[2019-07-20] MEDS ORDERED: DEXTROMETHORPHAN POLISTIREX SUS.ER.12H PO PRN (13:19)
--- NOTE | 2019-07-20 16:45 | HP ---
Chief Complaint - Chief Complaint Date of Service: 07/20/19 Time of Service: 16:35 Chief Complaint: I feel weak History of Present Illness: 78-year-old female [facility]pc resident with past medical history of type 2 diabetes, anemia of chronic disease, anxiety disorder, depression, CKD 3, COPD, dementia, GERD, hyperlipidemia, osteoarthritis, osteoporosis was brought to our MedSurg unit for generalized weakness and paleness that has been worsening over the past few days. Patient has anemia of chronic disease most likely secondary to her chronic kidney disease however a CBC done several days ago revealed a hemoglobin of 7.6 which is below her baseline. Patient has been noted as being more confused than usual and has been observed to be below her baseline cognitive function. Given these symptoms was determined that she has symptom atic anemia requiring transfusion. Therefore 2 units of PRBCs were typed and crossed on outpatient basis but transfusion on an outpatient was not possible to be arranged. Therefore the patient will be admitted for transfusion of 2 units of PRBCs. Medical History (Last Reviewed 07/20/19 @ 15:13 by Rocío Becker RN) Anemia of chronic disease (Chronic) Essential hypertension (Chronic) Onset Date: Unknown Osteoporosis (Chronic) Anxiety and depression (Chronic) CHF (congestive heart failure) (Chronic) Uncontrolled type 2 diabetes mellitus with hyperglycemia, with long-term current use of insulin (Chronic) Type II diabetes mellitus with renal manifestations, uncontrolled (Chronic) Hypertension (Chronic) Confusion (Chronic) GERD with esophagitis (Chronic) CKD (chronic kidney disease) stage 3, GFR 30-59 ml/min (Chronic) Dementia (Chronic) Depression (Chronic) Anxiety and depression Onset Date: ~1969 COPD (chronic obstructive pulmonary disease) Onset Date: ~2008 Dementia Onset Date: Unknown Diabetes mellitus Onset Date: Unknown with proteinuria, neuropathy Gastritis Onset Date: Unknown Hx of echocardiogram Onset Date: 03/03/15 moderate concentric left ventricular hypertrophy, EF-52%,, pulmonary hypertension, small pericardial effusion, right ventricular systolic pressure elevated at 45mmHG Hyperlipidemia Onset Date: 1979 Osteoarthritis Onset Date: 2006 chronic, laminectomy, disc protrusion[2009] Osteoporosis Onset Date: Unknown Tobacco abuse Onset Date: Unknown 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 Tinguely- tubular adenoma x2, hyperplastic x1. History of appendectomy Onset Date: 1961 History of esophagogastroduodenoscopy (EGD) Onset Date: ~2017 ' [place]-mild esophagitis, inflamed glandular tissue w/changes suspicious for specialized columnar epithelium. Tinguely-mod chemical irritation. 01/17/1824-[id number] History of lumbar spinal fusion Onset Date: 12/11/08 Dr. 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 05/1912 [place]-right Unknown family medical history pt confused, no family present to confirm s/p left hip cemented hemiarthroplasty Onset Date: 01/11/18 Dr. Boone Family History: Family History (Last Reviewed 07/20/19 @ 16:23 by Rocío Becker RN) Father Diabetes Heart disease Gangrene of foot Mother Diabetes Osteoporosis Heart disease Hypertension Sister Diabetes Hypertension Brother Diabetes Hypertension Other Unknown family medical history Social History: (Last Updated 07/20/19 @ 16:25 by Rocío Becker RN) Social History: Marital status: / lives independently: No current occupational status: retired Highest education level completed: 11th grade Service: No Tobacco: Smoking Status: Current some day smoker tobacco type: cigarettes Smoking cigarettes per day: 3 quit status: considering quitting Alcohol: alcohol intake: former Dietary Habits: caffeine: Yes Type: coffee, tea Peds Patient Hx - Developmental: No Pertinent Hx Peds Patient Hx - Medical: No Pertinent Hx Peds Patient Hx - Cardiac/Respiratory: No Pertinent Hx Peds Patient Hx - Surgical: No Surgical History Patient History - Cancer: No Hx of Cancer Review Of Systems (GEN) - Review of Systems Generalized/Overall Review: Present: Weakness EENTM: Present: No Symptoms Reported Respiratory: Present: No Symptoms Reported Cardiac: Present: No Symptoms Reported Abdominal: Present: No Symptoms Reported Genitourinary: Present: No Symptoms Reported Musculoskeletal: Present: No Symptoms Reported Neurological: Present: No Symptoms Reported Skin: Present: Change in Color, Other - Pallor Endocrine: Present: No Symptoms Reported Immunizations: IMMUNIZATION HX Immunizations Up to Date Yes History of Influenza Vaccine Yes Hx Pneumococcal Vaccination Yes Allergies/Adverse Reactions: Allergies Allergy/AdvReac Type Severity Reaction Status Date / Time codeine [Codeine] Allergy Intermediate Verified 07/20/19 15:15 latex Allergy Intermediate rash Verified 07/20/19 15:15 Penicillins Allergy Intermediate Nausea Verified 07/20/19 15:15 ezetimibe Allergy Unknown Verified 07/20/19 15:15 [From Vytorin 10-10] simvastatin Allergy Unknown Verified 07/20/19 15:15 [From Vytorin 10-10] fentanyl AdvReac Severe Vomiting Verified 07/20/19 15:15 milk AdvReac Unknown Verified 07/20/19 15:15 hydrocodone [Hydrocodone] AdvReac Verified 07/20/19 15:15 methadone [Methadone] AdvReac Other Verified 07/20/19 15:15 morphine AdvReac Other Verified 07/20/19 15:15 oxycodone [Oxycodone] AdvReac Verified 07/20/19 15:15 Home Medications: HOME MEDICATIONS Gabapentin 100 mg PO TID 01/09/18 [Last Taken 01/09/18 12:00] Atorvastatin Calcium [Lipitor] 20 mg PO QPM 01/17/18 [Last Taken Unknown] Carbamide Peroxide [Debrox] 1 drp EACH EAR .Q7DAYS 01/17/18 [Last Taken 07/16/19] metFORMIN HCL [Metformin HCl ER] 1,000 mg PO BIDWM 01/17/18 [Last Taken Unknown] Pantoprazole Sodium [Protonix] 40 mg PO 0700 #30 tablet.dr 01/18/18 [Last Taken Unknown] acetaminophen 325 mg tablet 650 mg PO Q6H tab 04/06/18 [Last Taken Unknown] Cholecalciferol (Vitamin D3) [Vitamin D3] 2,000 unit PO DAILY 06/19/18 [Last Taken Unknown] Furosemide 40 mg PO DAILY #30 tab 06/20/18 [Last Taken Unknown] Insulin Lispro [Humalog] See Protocol SC ACINS #1 vial 06/20/18 [Last Taken Unknown] bisacodyl 10 mg rectal suppository 10 mg [place] DAILY PRN supp.rect 09/19/18 [Last Taken Unknown] glimepiride 4 mg tablet 4 mg PO BIDWM #56 tab 09/19/18 [Last Taken Unknown] nystatin 100,000 unit/gram topical powder 1 applic TP DAILY PRN 11/03/18 [Last Taken Unknown] sertraline 25 mg tablet 25 mg PO DAILY 01/24/19 [Last Taken Unknown] insulin glargine 100 unit/mL subcutaneous solution 22 unit SUBCUT Q12H 30 Days #13.2 ml 04/03/19 [Last Taken Unknown] dextromethorphan polistirex 30 mg/5 mL oral susp ext.release 12hr 10 ml PO Q12H PRN 05/21/19 [Last Taken Unknown] sulfamethoxazole 800 mg-trimethoprim 160 mg tablet 1 tab PO BID 7 Days #14 tab 07/19/19 [Last Taken Unknown] L. Acidophilus/Pectin, [place] [Acidophilus Capsule] 2 ea PO BID 07/20/19 [Last Taken Unknown] Exam - Exam Vital Signs: Vital Signs - Last Taken Temp 37.1 C 07/20/19 16:21 Pulse 69 07/20/19 16:21 Resp 16 07/20/19 16:21 BP 145/61 07/20/19 16:21 Pulse Ox 99 07/20/19 16:21 Constitutional: Present: Alert, Cooperative, Well developed, No distress, Elderly, Morbidly obese ENT Exam: Present: normal ENT inspection, hearing grossly normal, pharynx normal, TMs normal Eye Exam: bilateral eye: normal inspection, PERRL, EOMI Neck: Present: non-tender, full range of motion, supple, normal inspection, trachea midline Back Exam: Present: normal inspection, no CVA tenderness, no vertebral tenderness Breasts: Present: Exam deferred Respiratory: Present: chest non-tender, lungs clear, normal breath sounds, no respiratory distress, no accessory muscle use Cardiovascular/Chest: Present: normal peripheral pulses, regular rate, rhythm, no chest tenderness, no edema, no gallop, no JVD, no murmur, no rub Peripheral Pulses: carotid (R): 3+, carotid (L): 3+, femoral (R): 3+, femoral (L): 3+ Abdomen: Present: Normal bowel sounds, soft, nontender, nondistended, no rebound tenderness, no hepatospenomegaly, no masses, obese /Rectal: Present: Exam deferred Extremity: Present: normal range of motion, non-tender, normal inspection, no pedal edema, no calf tenderness, normal capillary refill, pelvis stable Skin Exam: Present: warm/dry, no cyanosis, pallor Lymphatic: Present: no adenopathy Neurologic: Present: no motor/sensory deficits, alert, normal mood/affect, disoriented x 3 Appearance: Present: neat, impaired recent memory, impaired remote memory Eye contact: Present: cooperative, good eye contact, normal speech Thoughts: Present: no apparent hallucination Diagnostic Studies: Abnormal Lab Results 07/18/19 Range/Units 10:15 Crossmatch See Detail Laboratory Results Blood Type O Positive 07/18/19 10:15 Antibody Screen Positive 07/18/19 10:15 Antibody Identification Anti-E Anti-Fya Inconclusive 07/18/19 10:15 Antibody Identification Anti-E Anti-Fya Inconclusive 07/18/19 10:15 Antibody Identification Anti-E Anti-Fya Inconclusive 07/18/19 10:15 Crossmatch See Detail 07/18/19 10:15 Assessment/Plan - Narrative Narrative: Patient was brought to our facility in an ambulance and arrived with stable vitals, she is alert and responsive but appears pale and weak. She will be transfused 2 PRBCs and we will follow post transfusion hemoglobin for improvement of anemia. During the hospitalization she will be administered all her routine medications. - Assessment/Plan (1) Symptomatic anemia Problem: Acute (2) Anemia of chronic disease Problem: Acute (3) Generalized weakness Problem: Acute (4) Diabetes mellitus, type II Problem: Chronic Qualifiers:
[2019-07-20] MEDS: INSULIN LISPRO 100 UNITS/ML VIAL SC SCH (17:55)
[2019-07-20] MEDS: INSULIN GLARGINE,HUM.REC.ANLOG 100 UNITS/ML VIAL SC SCH ×2 (17:55→20:53)
[2019-07-20] MEDS: GABAPENTIN 100 MG CAPSULE PO SCH (17:55)
[2019-07-20] MEDS: ROSUVASTATIN CALCIUM 10 MG TABLET PO SCH (17:55)
[2019-07-20] MEDS: LACTOBACILLUS ACIDOPHILUS 1 EACH CAPSULE PO SCH (20:52)
[2019-07-20] MEDS: SULFAMETHOXAZOLE/TRIMETHOPRIM 1 TAB TABLET PO SCH (20:53)
[2019-07-20] MEDS ORDERED: [UNRECOGNIZED DRUG - OTHER] PO SCH (21:00)
[2019-07-20] MEDS ORDERED: LACTOBACILLUS ACIDOPHILUS PO SCH (21:00)
[2019-07-21 05:11] LABS: Hemoglobin 10.5 gm/dL (12.5-16.0)
[2019-07-21 05:12] LABS: Hematocrit 31.8 % (37.0-47.0)
[2019-07-21] MEDS ORDERED: GLIMEPIRIDE 4 MG TABLET PO SCH (07:00)
[2019-07-21] MEDS: INSULIN LISPRO 100 UNITS/ML VIAL SC SCH (07:29)
[2019-07-21 07:36] LABS: Hematocrit 32.7 % (37.0-47.0); Hemoglobin 10.7 gm/dL (12.5-16.0)
[2019-07-21] MEDS ORDERED: FUROSEMIDE 40 MG TABLET PO SCH (09:00)
[2019-07-21] MEDS ORDERED: CHOLECALCIFEROL 1,000 UNIT CAPSULE PO SCH (09:00)
[2019-07-21] MEDS ORDERED: SERTRALINE HCL 50 MG TABLET PO SCH (09:00)
[2019-07-21] MEDS ORDERED: FAMOTIDINE 20 MG TABLET PO SCH (09:00)
--- NOTE | 2019-07-21 09:45 | DS ---
(1) Symptomatic anemia Problem: Acute (2) Anemia of chronic disease Problem: Acute (3) Generalized weakness Problem: Acute (4) Diabetes mellitus, type II Problem: Chronic Qualifiers: Date of Discharge:: 07/21/19 Description of Stay: 78-year-old female longterm resident that was admitted for symptomatic anemia with plans to receive 2 PRBC transfusions, was evaluated at bedside and was found to be afebrile and in no acute distress. Clinically the patient looks much better her pallor has resolved and she reports feeling stronger than when she arrived. There were no adverse events reported during the transfusions. Therefore decision to discharge patient back to [facility] was made. Patient will be discharged with orders to undergo a CBC in 1 week and to follow-up with her PCP. Procedures Performed: see notes below List Procedures: Transfusion of 2 PRBCs Results and Findings: Lab Pending Results 07/18/19 10:15: Blood Type O Positive, Antibody Screen Positive, Antibody Identification Inconclusive, Crossmatch See Detail 07/21/19 01:14: Hgb 10.5 L, Hct 31.8 L 07/21/19 07:23: Hgb 10.7 L, Hct 32.7 L Discharge Location: [facility] Disposition: Intermediate Care Facility ICF Condition: Fair Face to Face Encounter completed per CMS Guidelines: No Level of Care: ICF Discharge Activity: Activity as tolerated Discharge Diet: Consistent carbs Referrals: Lindsey Clinton ARNP [Primary Care Provider] - Problem Oriented Discharge Instructions to Patient/Family: Blood Transfusion, Care After Complete Home Medications List: Complete Home Medication List: Gabapentin 100 mg PO TID 01/09/18 Atorvastatin Calcium [Lipitor] 20 mg PO QPM 01/17/18 Carbamide Peroxide [Debrox] 1 drp EACH EAR .Q7DAYS 01/17/18 metFORMIN HCL [Metformin HCl ER] 1,000 mg PO BIDWM 01/17/18 Pantoprazole Sodium [Protonix] 40 mg PO 0700 #30 tablet.dr 01/18/18 acetaminophen 325 mg tablet 650 mg PO Q6H tab 04/06/18 Cholecalciferol (Vitamin D3) [Vitamin D3] 2,000 unit PO DAILY 06/19/18 Furosemide 40 mg PO DAILY #30 tab 06/20/18 Insulin Lispro [Humalog] See Protocol SC ACINS #1 vial 06/20/18 bisacodyl 10 mg rectal suppository 10 mg [place] DAILY PRN supp.rect 09/19/18 glimepiride 4 mg tablet 4 mg PO BIDWM #56 tab 09/19/18 nystatin 100,000 unit/gram topical powder 1 applic TP DAILY PRN 11/03/18 sertraline 25 mg tablet 25 mg PO DAILY 01/24/19 insulin glargine 100 unit/mL subcutaneous solution 22 unit SUBCUT Q12H 30 Days #13.2 ml 04/03/19 dextromethorphan polistirex 30 mg/5 mL oral susp ext.release 12hr 10 ml PO Q12H PRN 05/21/19 sulfamethoxazole 800 mg-trimethoprim 160 mg tablet 1 tab PO BID 7 Days #14 tab 07/19/19 L. Acidophilus/Pectin, [place] [Acidophilus Capsule] 2 ea PO BID 07/20/19
[2019-07-21] MEDS: GABAPENTIN 100 MG CAPSULE PO SCH (09:54)
[2019-07-21] MEDS: LACTOBACILLUS ACIDOPHILUS 1 EACH CAPSULE PO SCH (09:54)
[2019-07-21] MEDS: ROSUVASTATIN CALCIUM 10 MG TABLET PO SCH (09:54)
[2019-07-21] MEDS: SULFAMETHOXAZOLE/TRIMETHOPRIM 1 TAB TABLET PO SCH (09:55)
[2019-07-21] MEDS: INSULIN GLARGINE,HUM.REC.ANLOG 100 UNITS/ML VIAL SC SCH (09:56)
[2019-07-21 11:30] VITALS: BP 158/53
== END 2019-07-21 11:00 ==
LOC: MS
PROVIDERS: ADMIT Family Medicine; ATTEND Family Medicine
CPT/HCPCS: 36415; 36430; 85014; 85018; 86850; 86870; 86902; 87081; 96372; 96374; G0378; P9016